=== PATIENT | male | born 1945 | race Caucasian/White ===

== ENCOUNTER 2017-11-27 13:50 | Emergency (ER) | payer SELFPAY ==
[~2017-11-27] VITALS: Ht 182.9 cm; Wt 86.4 kg
[2017-11-27 13:53] VITALS: BP 140/73; PULSE 69; RESP 16; TEMP 97.4; O2SAT 98
[2017-11-27 15:31] LABS: AUTOMATED NEUTROPHIL # 4.8 TH/MM3 (1.8-7.7); BASOPHIL % 0.6 % (0.0-2.0); EOSINOPHIL # 0.2 TH/MM3 (0-0.4); EOSINOPHIL % 2.4 % (0.0-4.0); HEMATOCRIT 37.4 % (39.0-51.0); HEMOGLOBIN 12.9 GM/DL (13.0-17.0); LYMPHOCYTE # 1.2 TH/MM3 (1.0-4.8); MEAN CELL VOLUME 91.7 FL (80.0-100.0); MEAN CORPUSCULAR HEMOGLOBIN 31.7 PG (27.0-34.0); MEAN CORPUSCULAR HGB CONC 34.6 % (32.0-36.0); MEAN PLATELET VOLUME 8.3 FL (7.0-11.0); MONOCYTE # 0.5 TH/MM3 (0-0.9); PLATELET COUNT 200 TH/MM3 (150-450); RED BLOOD COUNT 4.08 MIL/MM3 (4.50-5.90); RED CELL DISTRIBUTION WIDTH 13.1 % (11.6-17.2); WHITE BLOOD COUNT 6.8 TH/MM3 (4.0-11.0)
[2017-11-27 15:36] LABS: BILIRUBIN, URINE NEG (NEG); BLOOD, URINE NEG (NEG); GLUCOSE,URINE NEG (NEG); HYALINE CAST, URINE 10 /lpf (RARE); KETONE, URINE NEG (NEG); NITRITE,URINE NEG (NEG); URINE COLOR YELLOW (YELLW/STRAW); URINE LEUKOCYTE ESTERASE NEG (NEG)
[2017-11-27 15:38] LABS: PROTHROMBIN TIME - PATIENT 10.4 SEC (9.8-11.6)
[2017-11-27 15:41] LABS: BICARBONATE 23.7 MEQ/L (21.0-32.0); BLOOD UREA NITROGEN 28 MG/DL (7-18); CALCIUM 8.6 MG/DL (8.5-10.1); CHLORIDE 107 MEQ/L (98-107); CREATININE 1.42 MG/DL (0.60-1.30); GLOMERULAR FILTRATION RATE 49 ML/MIN (>89); GLUCOSE,RANDOM 135 MG/DL (74-106); MAGNESIUM 2.3 MG/DL (1.5-2.5); SODIUM (NA) 139 MEQ/L (136-145)
[2017-11-27 15:45] LABS: TROPONIN I LESS THAN 0.02 NG/ML (0.02-0.05)
[2017-11-27 18:37] VITALS: BP 184/84; PULSE 66; RESP 16; O2SAT 98
[2017-11-27] MEDS ORDERED: SODIUM CHLOR 0.9% 1000 ML INJ 1,000 ML IV ONE (18:45)
--- NOTE | 2017-11-27 18:50 | PD ---
HPI Chief Complaint: Dizziness Time Seen by Provider: 18:35 Travel History International Travel<30 days: No Contact w/Intl Traveler<30days: No Traveled to known affect area: No History of Present Illness HPI 72-year-old male presents to the emergency department for evaluation of an episode of hypotension and dizziness that occurred today around 1 PM. Patient states that he felt dizzy and lightheaded with blurry vision so he checked his blood pressure and he states it was low, 60/40. Patient denies any syncopal episodes. He states he had no chest pain or abdominal pain. He had no other symptoms when this occurred. He states that now, he is back at his baseline. He does state that over the past couple weeks he has had some intermittent dizziness with bending over. He is not currently having this at this time. He denies any headache. No chest pain or shortness of breath. No abdominal pain. No nausea, vomiting, diarrhea. Patient states he has history of hypertension , BPH, descending aneurysm. He states he recently moved from [place] where he was incarcerated to [place]. No exacerbating or alleviating factors. Moderate severity. PFSH Past Medical History AAA: Yes Cardiovascular Problems: Yes (HTN, AAA) Diminished Hearing: No GERD: Yes Hypertension: Yes Inguinal Hernia: Yes (REPAIRED AGE 17) Medical other: Yes (VERTIGO, ENLARGED PROSTATE) Past Surgical History Abdominal Surgery: Yes (HERNIA REPAIR -RIGHT) Other Surgery: Yes (RIGHT SHOULDER SX, LEFT FOOT SX) Social History Alcohol Use: No Tobacco Use: No Substance Use: No Allergies-Medications (Allergen,Severity, Reaction): Coded Allergies: Penicillins (Verified Allergy, Severe, Dizziness, 11/27/17) Review of Systems Except as stated in HPI: all other systems reviewed are Neg Physical Exam Narrative GENERAL: Well-nourished, well-developed male patient, afebrile. SKIN: Focused skin assessment warm/dry. HEAD: Normocephalic. Atraumatic. ENT: Mucosa pink and moist. No erythema or exudates. No uvular edema. No uvular , palatal, or tonsillar deviation. Airway patent. Nasal turbinates appear normal without nasal blood, purulent drainage or septal hematoma. Bilateral tympanic membranes are clear without erythema or perforation. EYES: No scleral icterus. No injection or drainage. PERRLA. EOM intact. NECK: Supple, trachea midline. No JVD or lymphadenopathy. CARDIOVASCULAR: Regular rate and rhythm without murmurs, gallops, or rubs. Bilateral radial and pedal pulses are 2+. RESPIRATORY: Breath sounds equal bilaterally. No accessory muscle use. Lungs sounds are clear to auscultation. GASTROINTESTINAL: Abdomen soft, non-tender, nondistended. MUSCULOSKELETAL: No cyanosis, or edema. Bilateral upper and lower extremity strength 5/5. All extremities are neurovascularly intact. BACK: Nontender without obvious deformity. No CVA tenderness. NEUROLOGICAL: Awake and alert. Cranial nerves II through XII intact. Motor and sensory grossly within normal limits. Five out of 5 muscle strength in all muscle groups. Normal speech. Finger to nose is normal bilaterally. Heel-to- pedro is normal bilaterally. Data Data Last Documented VS Vital Signs Date Time Temp Pulse Resp B/P (MAP) Pulse Ox O2 Delivery O2 Flow Rate FiO2 11/27/17 18:37 66 16 184/84 (117) 98 Room Air 11/27/17 13:53 97.4 Orders Orders Electrocardiogram (11/27/17 13:56) Basic Metabolic Panel (Bmp) (11/27/17 13:56) Complete Blood Count With Diff (11/27/17 13:56) Magnesium (Mg) (11/27/17 13:56) Ckmb (Isoenzyme) Profile (11/27/17 13:56) Troponin I (11/27/17 13:56) Act Partial Throm Time (Ptt) (11/27/17 13:56) Prothrombin Time / Inr (Pt) (11/27/17 13:56) Urinalysis - C+S If Indicated (11/27/17 13:56) CKMB (11/27/17 14:30) CKMB% (11/27/17 14:30) Ct Brain W/O Iv Contrast(Rout) (11/27/17 ) Cta Thor Abd Aorta W Iv C W3d (11/27/17 ) Sodium Chlor 0.9% 1000 Ml Inj (Ns 1000 M (11/27/17 18:45) Orthostatic Vital Signs (11/27/17 18:51) Labs Laboratory Tests Test 11/27/17 14:30 White Blood Count 6.8 TH/MM3 Red Blood Count 4.08 MIL/MM3 Hemoglobin 12.9 GM/DL Hematocrit 37.4 % Mean Corpuscular Volume 91.7 FL Mean Corpuscular Hemoglobin 31.7 PG Mean Corpuscular Hemoglobin Concent 34.6 % Red Cell Distribution Width 13.1 % Platelet Count 200 TH/MM3 Mean Platelet Volume 8.3 FL Neutrophils (%) (Auto) 71.0 % Lymphocytes (%) (Auto) 18.0 % Monocytes (%) (Auto) 8.0 % Eosinophils (%) (Auto) 2.4 % Basophils (%) (Auto) 0.6 % Neutrophils # (Auto) 4.8 TH/MM3 Lymphocytes # (Auto) 1.2 TH/MM3 Monocytes # (Auto) 0.5 TH/MM3 Eosinophils # (Auto) 0.2 TH/MM3 Basophils # (Auto) 0.0 TH/MM3 CBC Comment DIFF FINAL Differential Comment Prothrombin Time 10.4 SEC Prothromb Time International Ratio 1.0 RATIO Activated Partial Thromboplast Time 25.5 SEC Urine Color YELLOW Urine Turbidity CLEAR Urine pH 6.0 Urine Specific [place] 1.014 Urine Protein NEG mg/dL Urine Glucose (UA) NEG mg/dL Urine Ketones NEG mg/dL Urine Occult Blood NEG Urine Nitrite NEG Urine Bilirubin NEG Urine Urobilinogen LESS THAN 2.0 MG/DL Urine Leukocyte Esterase NEG Urine RBC LESS THAN 1 /hpf Urine WBC 1 /hpf Urine Hyaline Casts 10 /lpf Microscopic Urinalysis Comment CULT NOT INDICATED Blood Urea Nitrogen 28 MG/DL Creatinine 1.42 MG/DL Random Glucose 135 MG/DL Calcium Level 8.6 MG/DL Magnesium Level 2.3 MG/DL Sodium Level 139 MEQ/L Potassium Level 3.9 MEQ/L Chloride Level 107 MEQ/L Carbon Dioxide Level 23.7 MEQ/L Anion Gap 8 MEQ/L Estimat Glomerular Filtration Rate 49 ML/MIN Total Creatine Kinase 300 U/L Creatine Kinase MB 7.0 NG/ML Troponin I LESS THAN 0.02 NG/ML MDM Medical Decision Making Medical Screen Exam Complete: Yes Emergency Medical Condition: Yes Medical Record Reviewed: Yes Differential Diagnosis Electrolyte abnormality versus dehydration versus intracranial abnormality versus aortic aneurysm versus orthostatic hypotension Narrative Course 72-year-old male presents to the emergency department for evaluation of an episode of dizziness and hypotension that occurred around 1 PM today. He is back at his baseline and denies complaints at this time. EKG shows sinus bradycardia, heart rate 57, LVH by voltage, no acute ST changes. CBC, BMP, magnesium, CK, troponin, PTT, PT/INR, UA are ordered and pending. Orthostatic vital signs are ordered and pending. Patient is given normal saline [address] of the brain and CTA of the aorta are ordered and pending. CBC shows no acute abnormality. BMP shows BUN 28, creatinine 1.42. Glucose is 135. CK is 300. Troponin is less than 0.02. Magnesium is 2.3. Coags are unremarkable. UA shows no evidence of acute infection. Orthostatic vital signs , CT of the brain, CTA of the aorta are pending. Dr. Dutta will resume care and disposition of patient. Tamiko Lang Nov 27, 2017 18:50
--- NOTE | 2017-11-27 19:29 | PD ---
Physical Exam Narrative General: The patient is a well-developed well-nourished male in no acute distress. Head and Neck exam: Head is normocephalic atraumatic. Eyes: EOMI, pupils are equal round and reactive to light. Nose: Midline septum with pink mucous membranes Mouth: Dentition unremarkable. Moist mucus membranes. Posterior oropharynx is not erythematous. No tonsillar hypertrophy. Uvula midline. Airway patent. Neck: No palpable lymphadenopathy. No nuchal rigidity. No thyromegaly. Cardiovascular: Regular rate and rhythm without murmurs, gallops, or rubs. Lungs: Clear to auscultation bilaterally. No wheezes, rhonchi, or rales. Abdomen: Soft, without tenderness to palpation in all 4 quadrants of the abdomen. No guarding, rebound, or rigidity. Normal bowel sounds are audible. No tenderness on palpation of McBurney's point. Extremities: No clubbing, cyanosis, or edema. 2+ pulses in all 4 extremities. No calf tenderness on palpation. Back: No spinous process tenderness to palpation. No costovertebral angle tenderness to palpation. Neurologic Exam: Grossly nonfocal. Skin Exam: No rash noted. Intact skin that is warm and dry. Data Data Last Documented VS Vital Signs Date Time Temp Pulse Resp B/P (MAP) Pulse Ox O2 Delivery O2 Flow Rate FiO2 11/27/17 22:02 68 18 161/87 (111) 70 18 167/87 (113) 76 18 160/79 (106) 11/27/17 22:00 96 Room Air 11/27/17 13:53 97.4 Orders Orders Electrocardiogram (11/27/17 13:56) Basic Metabolic Panel (Bmp) (11/27/17 13:56) Complete Blood Count With Diff (11/27/17 13:56) Magnesium (Mg) (11/27/17 13:56) Ckmb (Isoenzyme) Profile (11/27/17 13:56) Troponin I (11/27/17 13:56) Act Partial Throm Time (Ptt) (11/27/17 13:56) Prothrombin Time / Inr (Pt) (11/27/17 13:56) Urinalysis - C+S If Indicated (11/27/17 13:56) CKMB (11/27/17 14:30) CKMB% (11/27/17 14:30) Ct Brain W/O Iv Contrast(Rout) (11/27/17 ) Cta Thor Abd Aorta W Iv C W3d (11/27/17 ) Sodium Chlor 0.9% 1000 Ml Inj (Ns 1000 M (11/27/17 18:45) Orthostatic Vital Signs (11/27/17 18:51) Iohexol 350 Inj (Omnipaque 350 Inj) (11/27/17 22:04) Troponin I (11/27/17 22:13) Ed Discharge Order (11/27/17 23:05) Labs Laboratory Tests Test 11/27/17 14:30 11/27/17 22:23 White Blood Count 6.8 TH/MM3 Red Blood Count 4.08 MIL/MM3 Hemoglobin 12.9 GM/DL Hematocrit 37.4 % Mean Corpuscular Volume 91.7 FL Mean Corpuscular Hemoglobin 31.7 PG Mean Corpuscular Hemoglobin Concent 34.6 % Red Cell Distribution Width 13.1 % Platelet Count 200 TH/MM3 Mean Platelet Volume 8.3 FL Neutrophils (%) (Auto) 71.0 % Lymphocytes (%) (Auto) 18.0 % Monocytes (%) (Auto) 8.0 % Eosinophils (%) (Auto) 2.4 % Basophils (%) (Auto) 0.6 % Neutrophils # (Auto) 4.8 TH/MM3 Lymphocytes # (Auto) 1.2 TH/MM3 Monocytes # (Auto) 0.5 TH/MM3 Eosinophils # (Auto) 0.2 TH/MM3 Basophils # (Auto) 0.0 TH/MM3 CBC Comment DIFF FINAL Differential Comment Prothrombin Time 10.4 SEC Prothromb Time International Ratio 1.0 RATIO Activated Partial Thromboplast Time 25.5 SEC Urine Color YELLOW Urine Turbidity CLEAR Urine pH 6.0 Urine Specific [place] 1.014 Urine Protein NEG mg/dL Urine Glucose (UA) NEG mg/dL Urine Ketones NEG mg/dL Urine Occult Blood NEG Urine Nitrite NEG Urine Bilirubin NEG Urine Urobilinogen LESS THAN 2.0 MG/DL Urine Leukocyte Esterase NEG Urine RBC LESS THAN 1 /hpf Urine WBC 1 /hpf Urine Hyaline Casts 10 /lpf Microscopic Urinalysis Comment CULT NOT INDICATED Blood Urea Nitrogen 28 MG/DL Creatinine 1.42 MG/DL Random Glucose 135 MG/DL Calcium Level 8.6 MG/DL Magnesium Level 2.3 MG/DL Sodium Level 139 MEQ/L Potassium Level 3.9 MEQ/L Chloride Level 107 MEQ/L Carbon Dioxide Level 23.7 MEQ/L Anion Gap 8 MEQ/L Estimat Glomerular Filtration Rate 49 ML/MIN Total Creatine Kinase 300 U/L Creatine Kinase MB 7.0 NG/ML Troponin I LESS THAN 0.02 NG/ML LESS THAN 0.02 NG/ML [facility] Medical Record Reviewed: Yes Supervised Visit with DIPIKA: Yes Interpretation(s) Last Impressions Head CT 11/27/17 Signed Impressions: Service Date/Time: Monday, November 27, 2017 21:43 - CONCLUSION: 1. Age-appropriate atrophy. No acute findings. Maninder Aaron MD Aorta CTA 11/27/17 Signed Impressions: Service Date/Time: Monday, November 27, 2017 21:48 - CONCLUSION: 1. No evidence of aortic aneurysm or dissection. 2. Distended urinary bladder and prominent prostate. 3. Focal area of scarring in the medial left upper lung measuring 1.4 cm. Maninder Aaron MD Narrative Course I, Dr. Dutta, have reviewed the advance practice practitioner's documentation and am in agreement, met with the patient face to face, made the diagnosis, and the medical decision making was done by me. The patient was initially evaluated by Tamiko, the nurse practitioner. Please see their complete history and physical. *My assessment and Findings: The patient presents with a history of dizziness with lightheaded sensation that occurred earlier in the afternoon today. The patient reportedly checks his blood pressure and it was 60/40. The patient has a prior history of hypertension as well as an abdominal aortic aneurysm that is being monitored. During the course of the patient's emergency department visit, the patient's history, examination, and differential diagnosis were reviewed with the patient. The patient was placed on a director of cardiac cath lab with oximetry and frequent blood pressure monitoring. The patient had IV access obtained and blood work sent for analysis. The patient was initially provided normal saline 1 L IV fluid bolus, The patient's laboratory studies were reviewed and remarkable for a white count of 6.8, hemoglobin 12.9, platelets 200 with 71 neutrophils. Basic metabolic profile is remarkable for BUN of 28, creatinine 1.42, glucose 135, CPK 300, CK- MB 7, troponin I less than 0.02. PT 10.4, PTT 25.5. Urinalysis is unremarkable. CT scan of the brain showed no acute abnormality, CTA of the aorta shows no abdominal aortic aneurysm or dissection. The patient has incidental findings of a distended urinary bladder and prominent prostate which the patient reportedly has a history of, focal areas of scarring in the medial left upper lung measuring 1.4 cm. A delta troponin is ordered on this patient. If this is unchanged the patient will be discharged home. The patient's repeat troponin is less than 0.02. The patient will be discharged home with a prescription for Flomax. The patient 's orthostatics were negative. The patient is instructed to follow-up with a local primary care physician. The patient is given the information for the [facility] for follow-up in the next 2 days. The patient is resting comfortably and feels better, is alert and in no distress. The patient's results and examination findings were discussed with the patient. The repeat examination is unremarkable and benign. The history, exam, diagnostic testing, and current condition do not suggest any significant pathology to warrant further testing, continued ED treatment, admission, or surgical evaluation at this point. The vital signs have been stable. The patient does not have uncontrollable pain, intractable vomiting, or other significant symptoms. The patient's condition is stable and appropriate for discharge. The patient will pursue further outpatient evaluation with a primary care physician or other designated or consulting physician as indicated in the discharge instructions. The patient expressed understanding and was agreeable with this plan. Diagnosis Primary Impression: Lightheadedness Additional Impression: Prostate enlargement Referrals: [facility] 2 days Patient Instructions: General Instructions, Lightheadedness (ED) Med/Other Pt SpecificInfo: Prescription(s) given Scripts Tamsulosin (Flomax) 0.4 Mg Cap 0.4 MG PO HS for Manage Prostate Problems, #30 CAP 0 Refills Prov: Arabella Dutta MD 11/27/17 Disposition: 01 DISCHARGE HOME Condition: Stable Arabella Dutta MD Nov 27, 2017 19:29
[2017-11-27 21:30] VITALS: BP 132/78; PULSE 64; RESP 18; O2SAT 95
[2017-11-27 22:00] VITALS: BP 161/87; PULSE 59; RESP 16; O2SAT 96
[2017-11-27 22:02] VITALS: BP_SYST 160; BP_SYST 161; BP_SYST 167; BP_DIAS 79; BP_DIAS 87; RESP 18
[2017-11-27] MEDS ORDERED: IOHEXOL 350 MG/ML 10 ML VIAL (for RAD DIAG) IVCONTRAST ONE (22:04)
--- NOTE | 2017-11-27 22:36 | RADRPT ---
EXAM DATE/TIME: 11/27/2017 21:43 [facility] COMPARISON: No previous studies available for comparison. INDICATIONS : Dizziness. RADIATION DOSE: 64.63 CTDIvol (mGy) ; Tabletop CT Head MEDICAL HISTORY : None SURGICAL HISTORY : None. ENCOUNTER: Initial ACUITY: 1 day PAIN SCALE: 0/10 LOCATION: cranial TECHNIQUE: Multiple contiguous axial images were obtained of the head. Using automated exposure control and adj ustment of the mA and/or kV according to patient size, radiation dose was kept as low as reasonably a chievable to obtain optimal diagnostic quality images. DICOM format image data is available electro nically for review and comparison. FINDINGS: CEREBRUM: The ventricles are normal for age. No evidence of midline shift, mass lesion, hemorrhage or acute in farction. No extra-axial fluid collections are seen. POSTERIOR FOSSA: The cerebellum and brainstem are intact. The 4th ventricle is midline. The cerebellopontine angle i s unremarkable. EXTRACRANIAL: The visualized portion of the orbits is intact. SKULL: The calvaria is intact. No evidence of skull fracture. CONCLUSION: 1. Age-appropriate atrophy. No acute findings. Maninder Aaron MD on November 27, 2017 at 22:33 Board Certified Radiologist. This report was verified electronically.
--- NOTE | 2017-11-27 22:41 | RADRPT ---
EXAM DATE/TIME: 11/27/2017 21:48 [facility] COMPARISON: No previous studies available for comparison. INDICATIONS : Chest pain, dizziness and hypotension. IV CONTRAST: 100 cc Omnipaque 350 (iohexol) IV RADIATION DOSE: 6.91 CTDIvol (mGy) MEDICAL HISTORY : Aneurysm, abdominal. Gastroesophageal reflux disease. SURGICAL HISTORY : None. ENCOUNTER: Initial ACUITY: 1 day PAIN SCALE: 5/10 LOCATION: chest TECHNIQUE: Volumetric scanning was performed using a multi-row detector CT scanner. The data was post processed with a variety of visualization algorithms including full volume maximum intensity projection, multi -planar sliding thin slab reformation, curved planar reformation, and surface rendering techniques. Using automated exposure control and adjustment of the mA and/or kV according to patient size, radiat ion dose was kept as low as reasonably achievable to obtain optimal diagnostic quality images. DICOM format image data is available electronically for review and comparison. FINDINGS: LUNGS: There is no consolidation or pneumothorax. No concerning pulmonary nodule is visualized. Focal area of scarring in the medial left midlung as seen on lung window image 29. No pleural fluid is present . MEDIASTINUM: No abnormally enlarged lymph nodes by CT criteria. No axillary or hilar abnormalities are identified. ABDOMEN: The liver and spleen are free of focal defects. The gallbladder and pancreas demonstrate no abnormali ty. The adrenal glands are normal. The kidneys demonstrate no evidence of solid renal mass or hydrone phrosis. No free fluid or abdominal masses are identified. No para-aortic adenopathy is seen. PELVIS: No evidence of free fluid or pelvic mass. No abnormally enlarged inguinal or retroperitoneal lymph no ingrid are present. The bladder is moderately distended with smooth margins. The prostate is prominent measuring 6 cm in width.. Healed fracture of the right inferior pubic ramus. THORACIC AORTA: The thoracic aortic root is normal with bovine configuration of the great vessels. The ascending aor ta measures 4.2 cm and the descending aorta measures 2.5 cm There is no evidence of aneurysm or disse ction. ABDOMINAL AORTA: The aorta is normal in caliber without aneurysm or dissection. The renal arteries are patent bilater ally. The proximal celiac and superior mesenteric arteries are patent and normal in diameter. PELVIC VESSELS: The internal iliac and external iliac vessels are patent without aneurysm or stenosis. CONCLUSION: 1. No evidence of aortic aneurysm or dissection. 2. Distended urinary bladder and prominent prostate. 3. Focal area of scarring in the medial left upper lung measuring 1.4 cm. Maninder Aaron MD on November 27, 2017 at 22:34 Board Certified Radiologist. This report was verified electronically.
[2017-11-27] MEDS ORDERED: TAMS5CAP PO (22:48)
--- NOTE | 2017-11-28 14:36 | EKG ---
Date Performed: 11/27/2017 Time Performed: 14:25:23 PTAGE: 72 years EKG: SINUS BRADYCARDIA NO PREVIOUS TRACING DOCTOR: Puma Barrios Interpretating Date/Time 11/28/2017 14:36:22
== END 2017-11-27 23:35 | disposition home or self-care (01) ==
LOC: NEPC 13:50
DX: R42 Dizziness and giddiness (principal); N40.0 Benign prostatic hyperplasia without lower urinary tract symptoms; R00.1 Bradycardia, unspecified; I95.9 Hypotension, unspecified
CPT/HCPCS: 70450; 71275; 74174; 80048; 81001; 82550; 82552; 83735; 84484; 85025; 85610; 85730; 93005; 96360; 96361; 99285; J7030; Q9967